=== PATIENT | female | born 1975 | race Caucasian/White ===

== ENCOUNTER 2017-11-18 14:20 | Emergency (ER) | payer BC ==
[2017-11-18] MEDS ORDERED: 0.9 % SODIUM CHLORIDE 1,000 ML BAG IV ONE (14:44)
[2017-11-18] MEDS ORDERED: ONDANSETRON HCL IV 4 MG/2 ML VIAL IV ONE (14:44)
[2017-11-18] MEDS ORDERED: HYDROMORPHONE HCL 2 MG/ML VIAL IVP ONE (14:45)
--- NOTE | 2017-11-18 14:52 | Emergency Department Record ---
History of Present Illness - General Chief Complaint: Abdominal Pain Stated Complaint: RT SIDE ABDOMINAL PAIN/KORY Time Seen by Provider: 11/18/17 14:40 Source: Patient Mode of Arrival: Ambulatory Limitations: No limitations - History of Present Illness Initial Comments: The patient is here due to a 3 day hx of crampy diffuse AP which now seems to be worse over the RUQ. She has had nausea but no vomiting. Additionally she has had 3-4 loose stools a day but with no blood in them. The patient has had a poor appetite and her only abdominal surgery is a MAKAYLA. The patient states when she is having he AP it does intermittently radiate up into her chest. There is no hx of CP with exertion, MATA or dyspnea. MD Complaint: Abdominal pain Onset/Timin -: Days(s) Location: Diffuse, Epigastric, RLQ Radiation: Back Severity: Moderate Severity scale (1-10): 8 Quality: Aching Consistency: Constant Improves With: Nothing - Related Data Patient : No Home Medications Medication Instructions Recorded Confirmed Last Taken Acyclovir 400 mg PO DAILY 11/18/17 11/18/17 1 Day Ago ~11/17/17 Albuterol Sulfate [Proair Hfa] 1 - 2 puff IH .EVERY 4-6 HOURS PRN 11/18/1711/18 1 Day Ago ~11/17/17 Aspirin 81 mg PO DAILY 11/18/17 11/18/17 1 Day Ago ~11/17/17 B-Complex with Vitamin C [Super B 1 each PO DAILY 11/18/17 11/18/17 1 Day Ago Complex-Vitamin C] ~11/17/17 Biotin 10,000 mcg PO QPM 11/18/17 11/18/17 1 Day Ago ~11/17/17 Cholecalciferol (Vitamin D3) 5,000 unit PO DAILY 11/18/17 11/18/17 1 Day Ago [Vitamin D3] ~11/17/17 Cranberry Fruit Extract [Cranberry] 850 mg PO DAILY 11/18/17 11/18/17 1 Day Ago ~11/17/17 Fenofibrate Nanocrystallized 145 mg PO QPM 11/18/17 11/18/17 1 Day Ago [Tricor] ~11/17/17 Fish Oil/Dha/Epa [Fish Oil 1,200 1 each PO DAILY 11/18/17 11/18/17 1 Day Ago mg Fish Oil] ~11/17/17 Fluticasone Propionate [Flonase] 2 spray EACH NARES DAILY PRN 11/18/17 11/18/17 1 Day Ago ~11/17/17 Gabapentin [Neurontin] 300 mg PO QPM 11/18/17 11/18/17 1 Day Ago ~11/17/17 Hydroxychloroquine Sulfate 200 mg PO BID 11/18/17 11/18/17 1 Day Ago [Plaquenil] ~11/17/17 Lactobacillus Acidophilus 1 each PO DAILY 11/18/17 11/18/17 1 Day Ago [Probiotic Acidophilus] ~11/17/17 Levothyroxine Sodium [Synthroid] 50 mcg PO DAILY 11/18/17 11/18/17 1 Day Ago ~11/17/17 Lisdexamfetamine Dimesylate 30 mg PO QAM 11/18/17 11/18/17 1 Day Ago [Vyvanse] ~11/17/17 Lisinopril [Zestril] 5 mg PO DAILY 11/18/17 11/18/17 1 Day Ago ~11/17/17 Metformin HCl [Glucophage] 500 mg PO BID 11/18/17 11/18/17 1 Day Ago ~11/17/17 Multivitamin [Multiple Vitamins] 1 each PO DAILY 11/18/17 11/18/17 1 Day Ago ~11/17/17 Pantoprazole Sodium [Protonix] 40 mg PO DAILY 11/18/17 11/18/17 1 Day Ago ~11/17/17 Sertraline HCl [Zoloft] 25 mg PO QPM 11/18/17 11/18/17 1 Day Ago ~11/17/17 Sitagliptin Phosphate [Januvia] 50 mg PO QAM 11/18/17 11/18/17 1 Day Ago ~11/17/17 Topiramate [Topamax] 50 mg PO QPM 11/18/17 11/18/17 1 Day Ago ~11/17/17 Turmeric Root Extract [Turmeric] 500 mg PO DAILY 11/18/17 11/18/17 1 Day Ago ~11/17/17 Previous Rx's Medication Instructions Recorded Hydrocodone/Acetaminophen [[place] 1 - 2 each PO .EVERY 4-6 HRS PRN 11/18/17 5-325 Tablet] #15 tablet Sucralfate [Carafate] 1 gm PO QID #28 tablet 11/18/17 Allergies Allergy/AdvReac Type Severity Reaction Status Date / Time doxycycline Allergy HIVES Verified 11/18/17 14:38 latex Allergy HIVES Verified 11/18/17 14:38 peanut Allergy DIFFICULTY Verified 11/18/17 14:38 BREATHING Sulfa (Sulfonamide Allergy HIVES Verified 11/18/17 14:38 Antibiotics) Travel Screening - Travel/Exposure Within Last 30 Days Have you traveled within the last 30 days?: No - Travel/Exposure Within Last Year Have you traveled outside the [place] in the last year?: No - Additonal Travel Details Have you been exposed to anyone with a communicable illness?: No - Travel Symptoms Symptom Screening: None Review of Systems Constitutional: Reports: Malaise. Denies: Chills, Fever Eyes: Denies: Eye discharge ENT: Denies: Congestion Respiratory: Denies: Cough, Dyspnea Cardiovascular: Denies: Arrhythmia Past Medical History - SOCIAL HISTORY Smoking Status: Former smoker Alcohol Use: None Drug Use: None - RESPIRATORY Hx Bronchitis: Yes (chronic) Hx COPD: Yes - CARDIOVASCULAR Hx Hypertension: Yes - NEURO Hx Headaches: Yes (migraine) Comment:: 2005 TBI - GI Hx Reflux: Yes - ENDOCRINE Hx Diabetes: Yes Hx Thyroid Disease: Yes Comment:: Auto immune-lupus - MUSCULOSKELETAL Hx Arthritis: Yes - PSYCH Hx Anxiety: Yes Comment:: PTSD - HEMATOLOGY/ONCOLOGY Hx Anemia: No Hx Blood Disorders: No Hx Bruising: No Hx Cancer: No Family Medical History Any Significant Family History?: Yes Family Hx Comment (NOT TO BE USED IN PLACE OF ITEMS BELOW): Lupus, fibromyalgias Hx Cancer: Father Hx Diabetes: Father, Mother Hx Heart Disease: Father Hx HTN: Father Physical Exam - General General Appearance: Alert, Oriented x3, Cooperative, No acute distress - Head Head exam: Atraumatic, Normocephalic, Normal inspection - Eye Eye exam: Normal appearance, PERRL - Neck Neck exam: Normal inspection, Full ROM. negative: Tenderness - Respiratory Respiratory exam: Normal lung sounds bilaterally. negative: Respiratory distress - Cardiovascular Cardiovascular Exam: Regular rate, Normal rhythm, Normal heart sounds - GI/Abdominal GI/Abdominal exam: Soft, Normal bowel sounds, Tenderness (There is significant mild to moderate diffuse AP increased in the RUQ.). negative: Guarding, Organomegaly, Pulsatile mass, Rebound - Extremities Extremities exam: Normal inspection, Full ROM, Normal capillary refill. negative: Tenderness Course Vital Signs 11/18/17 14:25 Temperature 98.2 F Pulse Rate 102 H Respiratory 16 Rate Blood Pressure 165/105 Pulse Ox 98 - Reevaluation(s) Reevaluation #1: The patient is doing a lot better at this time. She denies any new issues and states her pain is much improved. On exam her abdomen is very soft with only minimal RUQ tenderness. I did explain to her that her test results are all normal and that I am concerned about her gallbladder. The patient is to return to the ER at 7:15 am for recheck and an 8am US. 11/18/17 16:39 Medical Decision Making - Data Complexity MDM Data: Labs Ordered and/or Reviewed, X-Ray Ordered and/or Reviewed, EKG Ordered and/or Reviewed - Lab Data Result diagrams: 11/18/17 15:01 11/18/17 15:01 - EKG Data -: EKG Interpreted by Me EKG: No Acute Changes, Normal EKG - Radiology Data Radiology results: Report reviewed (CT: No acute intra-abdominal pathology.) Disposition Disposition: Discharge Clinical Impression: Abdominal pain Qualifiers: Abdominal location: right upper quadrant Qualified Code(s): R10.11 - Right upper quadrant pain Disposition: Home, Self-Care Condition: (2) Stable Instructions: Abdominal Pain (ED) Additional Instructions: Please start the Carafate as directed and use the [place] if needed. Please return to the ER at 7:15 am tomorrow for recheck and for the 8am US. Please return to the ER sooner for any increased pain, nausea, vomiting, or fever. Prescriptions: Hydrocodone/Acetaminophen [[place] 5-325 Tablet] 1 - 2 each PO .EVERY 4-6 HRS PRN #15 tablet PRN Reason: Pain Sucralfate [Carafate] 1 gm PO QID #28 tablet Forms: Patient Portal Access Time of Disposition: 16:31 Quality - Quality Measures Quality Measures: N/A - Blood Pressure Screening View Details: Yes Does Patient Have Any of the Following: Active Dx of HTN Blood Pressure Classification: Hypertensive Reading Systolic Measurement: 165 Diastolic Measurement: 105 Screening for High Blood Pressure: Patient Exclusion, Hx of HTN [G9744]
[2017-11-18 15:11] LABS: BASO % 0.8 % (0-6); EOS % 3.9 % (0-6); GRAN % 58.2 % (47-80); HEMATOCRIT 40.8 % (35.0-47.0); HEMOGLOBIN 13.7 gm/dl (11.6-16.0); LYMPH % 27.7 % (16-45); MEAN CELL VOLUME 87.7 fl (81-97); MEAN CORPUSCULAR HEMOGLOBIN 29.5 pg (27-33); MEAN CORPUSCULAR HGB CONC 33.6 g/dl (32-36); MEAN PLATELET VOLUME 10.3 fl (7.4-10.4); MONO % 9.4 % (0-9); PLATELET COUNT 320 K/uL (130-400); RED BLOOD COUNT 4.65 M/uL (3.80-5.40); RED CELL DISTRIBUTION WIDTH 13.4 % (11.5-14.5); URINE APPEARANCE SL CLOUDY; URINE BILIRUBIN NEGATIVE (NEGATIVE); URINE BLOOD NEGATIVE (NEGATIVE); URINE COLOR YELLOW; URINE GLUCOSE (UA) NEGATIVE (NEGATIVE); URINE KETONE NEGATIVE (NEGATIVE); URINE LEUKOCYTE ESTERASE NEGATIVE (NEGATIVE); URINE NITRITE NEGATIVE (NEGATIVE); URINE PROTEIN NEGATIVE (NEGATIVE); URINE UROBILINOGEN 0.2 E.U./dL (0.20 - 1.00); WHITE BLOOD COUNT W/O DIFF 7.7 K/uL (4.2-12.2)
[2017-11-18 15:24] LABS: BLOOD UREA NITROGEN 13 mg/dL (6-20); CREATININE 0.8 mg/dL (0.5-0.9); EST GLOMERULAR FILTRATION RATE > 60 mL/min; TOTAL PROTEIN 7.2 g/dL (6.6-8.7)
[2017-11-18 15:26] LABS: GLUCOSE,RANDOM 149 mg/dL (74-109)
[2017-11-18 15:29] LABS: ALBUMIN 4.6 g/dL (4.0-5.0); ALKALINE PHOSPHATASE 57 U/L (35-104); ALT/SGPT 23 U/L (<33); AST/SGOT 24 U/L (10.0-35.0); LIPASE 47 U/L (13-60)
[2017-11-18 15:30] LABS: BILIRUBIN,DIRECT < 0.2 mg/dL (0-0.3)
[2017-11-18] MEDS ORDERED: SUCRALFATE 1 G/10 ML UD PO ONE (16:04)
[2017-11-18 16:22] LABS: CREATINE PHOSPHOKINASE 129 U/L (26-192)
[2017-11-18 16:23] LABS: CKMB 2.3 ng/mL (<3.77)
--- NOTE | 2017-11-19 07:36 | CT SCAN REPORT ---
EXAM: CT OF THE ABDOMEN AND PELVIS HISTORY: RIGHT UPPER QUADRANT PAIN AND CHEST TIGHTNESS. TECHNIQUE: CT of the abdomen and pelvis was performed without intravenous or oral contrast. Comparison: None. FINDINGS: The lung bases are unremarkable. There is a 2 mm nonobstructing calculus in the lower right kidney. No other renal or ureteral calculi. No hydronephrosis. There is a 9 mm low density lesion in the posterior mid right kidney likely a cyst, but not optimally assessed without contrast and due to its small size. No contour deforming renal mass identified. There is diffuse fatty infiltration of the liver. There is no hepatic mass. The liver is, however, not optimally assessed without contrast. The spleen is unremarkable. No pancreatic mass or inflammatory change. The bile ducts are not dilated. There are no calcified gallstones. No adrenal lesion. There is no aortic aneurysm. No periaortic mass or adenopathy. There are no dilated bowel loops. No CT evidence for appendicitis. The uterus is surgically absent. No pelvic mass, abscess or adenopathy. No free air or free fluid. Arthritic changes are present in the lower lumbar spine. IMPRESSION: 1. NO ACUTE ABDOMINAL OR PELVIC PROCESS IDENTIFIED. 2. THERE IS A 2 MM NONOBSTRUCTING CALCULUS IN THE LOWER POLE OF THE RIGHT KIDNEY. 3. PROBABLE 9 MM CYST RIGHT KIDNEY. 4. DIFFUSE FATTY INFILTRATION OF THE LIVER. 5. PRIOR HYSTERECTOMY. 6. ARTHRITIC CHANGES IN THE LOWER LUMBAR SPINE. JOB NUMBER: [id number] MTDD
== END 2017-11-18 16:49 | disposition home or self-care (01) ==
LOC: ER 14:20
DX: R10.11 Right upper quadrant pain (principal); R11.0 Nausea; R07.89 Other chest pain; I10 Essential (primary) hypertension; E11.9 Type 2 diabetes mellitus without complications; Z87.891 Personal history of nicotine dependence; Z79.84 Long term (current) use of oral hypoglycemic drugs
CPT/HCPCS: 99284 ×2; 96374; 96375; 82550; 83690; 85025; 80076; 82553; 80048; 81003; 84484; 74176; 93005; 93010; J2405; J1170; J7030

== ENCOUNTER 2017-11-19 07:07 | Inpatient (IN) | payer BC ==
--- NOTE | 2017-11-19 07:19 | Emergency Department Record ---
History of Present Illness - General Chief Complaint: Recheck - Other Stated Complaint: ULTRASOUND Time Seen by Provider: 11/19/17 07:12 Source: Patient Mode of arrival: Ambulatory Limitations: No limitations - History of Present Illness Initial Comments: The patient is here for recheck due to RUQ Ap for 3 days. She was in the ER yesterday afternoon and had a neg workup including an abdominal CT. Last night the patient states her pain did worsen minimally with mild nausea and loose stool. She denies any vomiting or fever. She is here this AM for an abdominal US. Complaint: Other Onset/Timin -: Days(s) Symptoms Since Prior Visit: No new symptoms Associated Symptoms: Nausea - Related Data Previous Rx's Medication Instructions Recorded Hydrocodone/Acetaminophen [[place] 1 - 2 each PO .EVERY 4-6 HRS PRN 11/18/17 5-325 Tablet] #15 tablet Sucralfate [Carafate] 1 gm PO QID #28 tablet 11/18/17 Ondansetron [Zofran Odt] 4 mg SL .Q4-6H PRN #12 tab.rapdis 11/19/17 Allergies Allergy/AdvReac Type Severity Reaction Status Date / Time doxycycline Allergy HIVES Verified 11/18/17 14:38 latex Allergy HIVES Verified 11/18/17 14:38 peanut Allergy DIFFICULTY Verified 11/18/17 14:38 BREATHING Sulfa (Sulfonamide Allergy HIVES Verified 11/18/17 14:38 Antibiotics) Review of Systems Constitutional: Denies: Chills, Fever Eyes: Denies: Eye discharge ENT: Denies: Congestion Respiratory: Denies: Cough Cardiovascular: Denies: Arrhythmia, Chest pain Endocrine: Reports: Fatigue Gastrointestinal: Reports: Abdominal pain, Diarrhea, Nausea. Denies: Vomiting Genitourinary: Denies: Dysuria Musculoskeletal: Denies: Arthralgia, Back pain Past Medical History - SOCIAL HISTORY Smoking Status: Former smoker Drug Use: None - RESPIRATORY Hx Bronchitis: Yes (chronic) Hx COPD: Yes - CARDIOVASCULAR Hx Hypertension: Yes - NEURO Hx Headaches: Yes (migraine) Comment:: 2006 TBI - GI Hx Reflux: Yes - ENDOCRINE Hx Diabetes: Yes Hx Thyroid Disease: Yes Comment:: Auto immune-lupus - MUSCULOSKELETAL Hx Arthritis: Yes - PSYCH Hx Anxiety: Yes Comment:: PTSD - HEMATOLOGY/ONCOLOGY Hx Anemia: No Hx Blood Disorders: No Hx Bruising: No Hx Cancer: No Family Medical History Family Hx Comment (NOT TO BE USED IN PLACE OF ITEMS BELOW): Lupus, fibromyalgias Hx Cancer: Father Hx Diabetes: Father, Mother Hx Heart Disease: Father Hx HTN: Father Physical Exam - General General Appearance: Alert, Oriented x3, Cooperative, No acute distress - Head Head exam: Atraumatic, Normocephalic - Eye Eye exam: Normal appearance, PERRL - Neck Neck exam: Normal inspection, Full ROM. negative: Tenderness - Respiratory Respiratory exam: Normal lung sounds bilaterally. negative: Respiratory distress - Cardiovascular Cardiovascular Exam: Regular rate, Normal rhythm, Normal heart sounds - GI/Abdominal GI/Abdominal exam: Soft, Tenderness (There is significant RUQ tenderness.). negative: Distended, Rebound, Rigid - Extremities Extremities exam: Normal inspection, Full ROM, Normal capillary refill. negative: Tenderness Course - Reevaluation(s) Reevaluation #1: The patient is doing well at this time. Her pain is improved but still present and nausea has resolved. On exam the abdomen is soft with minimal epigastric and RUQ tenderness. Due to the persistent tenderness and now elevated Lipase I did recommend hospital admission and she did agree to that. I also did discuss the case with Dr. Thomas and he agreed to the admission. I did also discuss the case with Dr. Wallis and he can consult on the patient today. The patient is also to F/U with Dr. Cloud in 3 days in the [facility]. 11/19/17 08:57 11/19/17 09:26 11/19/17 09:30 Medical Decision Making - Data Complexity MDM Data: Labs Ordered and/or Reviewed, X-Ray Ordered and/or Reviewed - Lab Data Result diagrams: 11/19/17 07:12 11/19/17 07:25 - Radiology Data Radiology results: Report reviewed (US: Neg except for fatty liver.) Disposition Disposition: Admit Clinical Impression: Pancreatitis Qualifiers: Chronicity: acute Pancreatitis type: unspecified pancreatitis type Acute pancreatitis complication: unspecified Qualified Code(s): K85.90 - Acute pancreatitis without necrosis or infection, unspecified Disposition: Still a Patient at [facility] Decision to Admit: Admit from ER Decision to Admit Date: 11/19/17 Decision to Admit Time: :28 Accepting Physician: Martha Time Discussed w/Accepting Physician: :28 Condition: (2) Stable Additional Instructions: Please eat a very bland diet and take the Carafate and Zofran as directed. Please see Dr. Cloud and Dr. Wallis as planned. Return to the ER for any worsening symptoms of pain, or for any fever, or vomiting. Prescriptions: Ondansetron [Zofran Odt] 4 mg SL .Q4-6H PRN #12 tab.rapdis PRN Reason: Nausea Referrals: [facility] Specialty Clinics [Provider Group] Norris Wallis [DOCTOR OF OSTEOPATH] - SERGEY CLOUD [DOCTOR OF OSTEOPATH] - Forms: Patient Portal Access Time of Disposition: 08:59 Quality - Quality Measures Quality Measures: N/A - Blood Pressure Screening View Details: Yes Does Patient Have Any of the Following: No Blood Pressure Classification: Hypertensive Reading Systolic Measurement: 152 Diastolic Measurement: 94 Screening for High Blood Pressure: < First Hypertensive BP, F/U Documented > [ G8950] First Hypertensive Follow-up Interventions: Referral to alternative/primary care provider.
[2017-11-19 07:31] LABS: BASO % 0.8 % (0-6); EOS % 5.4 % (0-6); GRAN % 53.7 % (47-80); HEMATOCRIT 40.8 % (35.0-47.0); HEMOGLOBIN 13.4 gm/dl (11.6-16.0); LYMPH % 31.7 % (16-45); MEAN CELL VOLUME 89.1 fl (81-97); MEAN CORPUSCULAR HEMOGLOBIN 29.3 pg (27-33); MEAN CORPUSCULAR HGB CONC 32.8 g/dl (32-36); MONO % 8.4 % (0-9); PLATELET COUNT 294 K/uL (130-400); RED BLOOD COUNT 4.58 M/uL (3.80-5.40); RED CELL DISTRIBUTION WIDTH 13.4 % (11.5-14.5); WHITE BLOOD COUNT W/O DIFF 6.1 K/uL (4.2-12.2)
[2017-11-19] MEDS ORDERED: ONDANSETRON HCL IV 4 MG/2 ML VIAL IVP ONE (08:02)
[2017-11-19 08:24] LABS: BLOOD UREA NITROGEN 12 mg/dL (6-20)
[2017-11-19 08:25] LABS: BILIRUBIN,TOTAL < 0.20 mg/dL (0.2-1.0); CREATININE 0.8 mg/dL (0.5-0.9); EST GLOMERULAR FILTRATION RATE > 60 mL/min; TOTAL PROTEIN 6.6 g/dL (6.6-8.7)
[2017-11-19 08:27] LABS: GLUCOSE,RANDOM 216 mg/dL (74-109)
[2017-11-19 08:30] LABS: ALB/GLOB RATIO 1.5 (1.1-1.8); ALKALINE PHOSPHATASE 49 U/L (35-104); ALT/SGPT 20 U/L (<33); AST/SGOT 21 U/L (10.0-35.0)
--- NOTE | 2017-11-19 09:07 | ULTRASOUND REPORT ---
EXAM: ULTRASOUND OF THE ABDOMEN HISTORY: RIGHT UPPER QUADRANT PAIN. TECHNIQUE: Sonographic evaluation of the abdomen was performed using simpson scale imaging. FINDINGS: There is fatty infiltration of the liver. No gallstones or ductal dilatation. The common bile duct measures 0.18 cm. The pancreas and spleen appear normal. The kidneys are normal in size. No hydronephrosis or nephrolithiasis. The abdominal aorta and inferior vena cava are patent. IMPRESSION: 1. FATTY INFILTRATION OF THE LIVER. 2. NO GALLSTONES OR DUCTAL DILATATION. JOB NUMBER: [id number] [facility]
[2017-11-19] MEDS ORDERED: HYDROMORPHONE HCL 2 MG/ML VIAL IVP ONE ×2 (09:17→11:22)
[2017-11-19] MEDS ORDERED: 0.9 % SODIUM CHLORIDE 1,000 ML BAG IV ONE (09:18)
[2017-11-19] MEDS ORDERED: ALBUTEROL HFA 8 GM INHALER INH PRN (10:46)
[2017-11-19] MEDS ORDERED: LISDEXAMFETAMINE DIMESYLATE 30 MG PO SCH (10:46)
[2017-11-19] MEDS ORDERED: SITAGLIPTIN PHOSPHATE 50 MG PO SCH (10:46)
[2017-11-19] MEDS ORDERED: HYDROMORPHONE HCL 2 MG/ML VIAL IV PRN (10:46)
[2017-11-19] MEDS: 0.9 % SODIUM CHLORIDE 1000ML 1,000 ML IV PRN ×2 (11:04→17:57)
[2017-11-19] MEDS: ONDANSETRON HCL IV 4 MG/2 ML VIAL IVP PRN ×3 (11:05→22:34)
[2017-11-19] MEDS: HYDROXYCHLOROQUINE SULFATE 200 MG TABLET PO SCH ×2 (11:41→21:14)
[2017-11-19] MEDS: PANTOPRAZOLE SODIUM IV 40 MG VIAL IV SCH (11:41)
[2017-11-19] MEDS: METOCLOPRAMIDE HCL 10 MG/2 ML VIAL IVP PRN ×2 (15:03→20:11)
[2017-11-19] MEDS: HYDROMORPHONE HCL 2 MG/ML VIAL IV PRN ×3 (15:04→20:12)
[2017-11-19] MEDS: NOVOLOG FLEXPEN (INSULIN ASPART) 100 UNITS/ML SQ SCH (17:26)
[2017-11-19] MEDS: LEVOTHYROXINE SODIUM 50 MCG TABLET PO SCH ×2 (21:14→21:18)
[2017-11-19] MEDS: METFORMIN 500 MG TABLET PO SCH (21:15)
[2017-11-19] MEDS ORDERED: TOPIRAMATE 25MG TABLET PO SCH (22:00)
[2017-11-19] MEDS ORDERED: GABAPENTIN 300 MG CAPSULE PO SCH (22:00)
[2017-11-19] MEDS ORDERED: SERTRALINE HCL 50 MG TABLET PO SCH (22:00)
[2017-11-20] MEDS: 0.9 % SODIUM CHLORIDE 1000ML 1,000 ML IV PRN ×3 (00:25→17:25)
[2017-11-20 06:56] LABS: BASO % 0.5 % (0-6); EOS % 3.3 % (0-6); GRAN % 58.6 % (47-80); HEMATOCRIT 37.6 % (35.0-47.0); HEMOGLOBIN 12.4 gm/dl (11.6-16.0); LYMPH % 31.3 % (16-45); MEAN CELL VOLUME 89.3 fl (81-97); MEAN CORPUSCULAR HEMOGLOBIN 29.5 pg (27-33); MEAN PLATELET VOLUME 10.4 fl (7.4-10.4); MONO % 6.3 % (0-9); PLATELET COUNT 272 K/uL (130-400); RED BLOOD COUNT 4.21 M/uL (3.80-5.40); RED CELL DISTRIBUTION WIDTH 13.3 % (11.5-14.5); WHITE BLOOD COUNT W/O DIFF 6.6 K/uL (4.2-12.2)
[2017-11-20] MEDS ORDERED: LEVOTHYROXINE SODIUM 50 MCG TABLET PO SCH (07:00)
[2017-11-20 07:06] LABS: ALB/GLOB RATIO 1.7 (1.1-1.8); ALBUMIN 3.8 g/dL (4.0-5.0); ALKALINE PHOSPHATASE 39 U/L (35-104); ALT/SGPT 19 U/L (<33); AST/SGOT 20 U/L (10.0-35.0); BLOOD UREA NITROGEN 8 mg/dL (6-20); CREATININE 0.8 mg/dL (0.5-0.9); EST GLOMERULAR FILTRATION RATE > 60 mL/min; GLUCOSE,RANDOM 139 mg/dL (74-109)
--- NOTE | 2017-11-20 07:21 | History and Physical Report ---
DATE: 11/19/2017 at 1 p.m. CHIEF COMPLAINT: Abdominal pain, right upper quadrant. HISTORY OF PRESENT ILLNESS: This 42-year-old female presents to the emergency department with 3 days of abdominal pain. She is seen in the emergency department last night and today. She came back in for reevaluation of her abdominal pain and ultrasound. She was seen last night with a CT scan of the abdomen and pelvis which were negative for any acute abnormalities. Labs were negative. The ultrasound today was negative for stones; however, lipase went up to 350. She also has elevated cholesterol at 252, LDL cholesterol is 166, triglycerides 410. Her white count today is 6100, hemoglobin 13.4, potassium 3.9, BUN 12, creatinine 0.8. She was admitted for acute pancreatitis and surgical consultation with Dr. Wallis and a SRINATH reza. PAST MEDICAL HISTORY: Type 2 diabetes mellitus, lupus, hypothyroidism, anxiety and depression. She uses acyclovir to prevent herpes breakout. GERD, attention deficit disorder. She also has COPD, hypertension, migraines, hypothyroidism, lupus, arthritis, posttraumatic stress disorder. PAST SURGICAL HISTORY: Right knee surgery in 1993, left knee surgery in 1994, ovarian cyst 1996, hysterectomy in 2007, tonsils and adenoids in 1981. MEDICATIONS: 1. TriCor 145 mg q.h.s. 2. Topamax 50 mg at h.s. 3. Sertraline 25 mg at h.s. 4. Levothyroxine 50 mcg q.h.s. 5. Gabapentin 300 mg at h.s. 6. Tumeric 500 mg daily. 7. Carafate 1 g q.i.d. 8. Januvia 50 mg q.a.m. 9. Protonix 40 mg q.a.m. 10. Multivitamin 1 a day. 11. Metformin 500 mg b.i.d. 12. Lisinopril 5 mg daily. 13. Vyvanse 30 mg q.a.m. 14. Lactobacillus 1 daily. 15. Plaquenil 200 mg b.i.d. 16. [place] 5 mg 1-2 every 4-6 hours p.r.n. 17. Flonase nasal spray 2 sprays each nostril daily. 18. Fish oil 1 a day. 19. Cranberry extract 850 daily. 20. Vitamin D3, 5000 units daily. 21. Biotin 10,000 mcg q.p.m. 22. B complex 1 a day. 23. Aspirin 81 mg daily. 24. Albuterol 2 puffs q.4 h. p.r.n. 25. Acyclovir 400 mg daily to prevent herpes breakout and Zofran 4 mg sublingual p.r.n. ALLERGIES: DOXYCYCLINE, LATEX, PEANUTS, SULFA. FAMILY/PSYCHOSOCIAL HISTORY: History of lupus and fibromyalgia. Father has cancer. Father and mother have diabetes. Heart disease with the father and hypertension with the father. She is a former smoker. She quit in 2012. No alcohol or drug use. REVIEW OF SYSTEMS: Gastrointestinal: See Chief Complaint. She has abdominal pain right upper quadrant and vomiting and nausea. Genitourinary: No dysuria, hematuria, frequency, or burning on urination. Musculoskeletal: She has arthritis. Neurological: No CVA, paralysis, or paresthesias. Endocrine: She has both diabetes mellitus type 2 and hypothyroidism. Integument: No rash, ulcerative change in moles, or yellow skin. PHYSICAL EXAMINATION: VITAL SIGNS: Height 5 feet 2 inches. Weight 192 pounds. Temperature 98.4, blood pressure 142/92, respiratory rate 16, pulse ox 98% on room air, pulse 98. HEENT: Pupils are equal, round, and reactive to light and accommodation. Extraocular muscles are intact. Throat is clear. Nose is clear. Tympanic membranes are simpson. NECK: Supple. No jugular venous distention. No hepatojugular reflux. No carotid bruits. Thyroid is smooth. CARDIOVASCULAR: Regular rate and rhythm without murmurs, clicks, rubs, or gallops. RESPIRATORY: Clear to auscultation. Breath sounds equal bilaterally. ABDOMEN: Soft but there is pain in the right upper quadrant. No rebound or rigidity. EXTREMITIES: No pitting edema. No cyanosis, no clubbing. Full range of motion. Peripheral pulses are good. BREASTS: Exam deferred. GYNECOLOGICAL: Exam deferred. RECTAL: Exam deferred. NEUROLOGIC: Cranial nerves II-XII intact. No gross defects. Sensation normal, strength normal. Deep tendon reflexes equal bilaterally with Babinski negative. MENTAL STATUS: Alert and oriented x3. IMPRESSION: 1. Abdominal pain, right upper quadrant. 2. Acute pancreatitis. 3. History of diabetes mellitus type 2. 4. History of hypothyroidism. 5. History of osteoarthritis. 6. History of gastroesophageal reflux disease. 7. History of sleep apnea. 8. History of attention deficit hyperactivity disorder. 9. History of chronic obstructive pulmonary disease. PLAN: SRINATH reza. Dr. Wallis consult. Pain control. IV fluids. INPATIENT CERTIFICATION: Admit to inpatient care. Based on my medical assessment, after consideration of patient's risk factors, age, comorbidities, and patient's presenting symptoms and acuity, I expect that this patient will remain in the hospital greater than or equal to 2 midnights and that the services needed warrant inpatient care because of abdominal pain, further evaluation by Surgery. Estimated length of stay is 2 days. The patient may reasonably be expected to be discharged or transferred to a hospital within 96 hours after admission to [facility]. I certify that my determination is in accordance with my understanding of Medicare requirements for reasonable and necessary inpatient services. SHIREEN
--- NOTE | 2017-11-20 07:21 | Medical Records Consult ---
DATE OF CONSULTATION: 11/19/2017 REASON FOR CONSULTATION: Abdominal pain. HISTORY OF PRESENT ILLNESS: The patient is a 42-year-old female who has had a 4-day history of epigastric and right upper quadrant pain. She states that this is mainly constant. It gets worse with movement as well as eating. She really has not been able to eat much but has tried mashed potatoes and even water which seem to flare this up. She states that this does go up into her mid chest a bit and radiates around to her right flank and back. She is nauseated with this and did have a bit of diarrhea. She was seen over the weekend to [facility] ER where CT scan and laboratory values were done. These were essentially normal. She came back today for repeat lab draws as well as an ultrasound. She stated she has not gotten any better. She thinks she might be a bit worse. She does have history of GERD but thinks this feels different. She is on PPI and has never been scoped. She does have a history of hypertriglyceridemia for which she takes TriCor but these have not been checked in about 6 months. Repeat labs today show normal liver function tests although her lipase was 350. The rest of her labs were normal. Abdominal ultrasound showed no evidence of cholelithiasis or cholecystitis. All her ductal caliber was normal. PAST MEDICAL HISTORY: GERD, multiple autoimmune issues. PAST SURGICAL HISTORY: Denies. CURRENT MEDICATIONS: 1. [place]. 2. Carafate. 3. Zofran. ALLERGIES: DOXYCYCLINE, LATEX, PEANUTS, SULFA. SOCIAL HISTORY: She denies any tobacco or alcohol usage although she did smoke in the past. PHYSICAL EXAMINATION: VITAL SIGNS: Stable. She is afebrile. HEART: Regular rate and rhythm. LUNGS: Clear. ABDOMEN: Soft, obese. There is some epigastric and right subcostal tenderness. There is no guarding or rebound or peritoneal signs noted. DIAGNOSTIC DATA: I did review her labs and imaging. IMPRESSION: Pancreatitis, unknown clear etiology. PLAN: She does not drink. She has no gallstones. I would favor triglycerides as a potential source. We will obtain a lipid panel and obtain a HIDA scan with [facility] although I doubt this is biliary in nature. She may benefit from upper endoscopy at some point as well. Thank you for this referral. CC: DO SHIREEN Mathew
[2017-11-20 07:55] LABS: TOTAL PROTEIN 5.9 g/dL (6.6-8.7)
[2017-11-20 07:59] LABS: ALT/SGPT 19 U/L (<33)
[2017-11-20 08:00] LABS: ALBUMIN 3.7 g/dL (4.0-5.0); ALKALINE PHOSPHATASE 38 U/L (35-104); AST/SGOT 20 U/L (10.0-35.0); LIPASE 38 U/L (13-60)
[2017-11-20 08:02] LABS: BILIRUBIN,DIRECT < 0.2 mg/dL (0-0.3)
[2017-11-20] MEDS ORDERED: LISINOPRIL 5 MG TABLET PO SCH (10:00)
[2017-11-20] MEDS ORDERED: ACYCLOVIR 200 MG CAPSULE PO SCH (10:00)
[2017-11-20] MEDS: NOVOLOG FLEXPEN (INSULIN ASPART) 100 UNITS/ML SQ SCH ×3 (11:11→17:25)
[2017-11-20] MEDS: HYDROXYCHLOROQUINE SULFATE 200 MG TABLET PO SCH (11:20)
[2017-11-20] MEDS: METFORMIN 500 MG TABLET PO SCH (11:20)
[2017-11-20] MEDS: PANTOPRAZOLE SODIUM IV 40 MG VIAL IV SCH (11:23)
[2017-11-20] MEDS: METOCLOPRAMIDE HCL 10 MG/2 ML VIAL IVP PRN (11:40)
--- NOTE | 2017-11-20 14:49 | NUCLEAR MEDICINE REPORT ---
EXAM: NUCLEAR MEDICINE HIDA SCAN HISTORY: PAIN. TECHNIQUE: Following the IV administration of 5.9 millicuries of Technetium 99M mebrofenin, hepatobiliary imaging was performed. 1.7 micrograms of Kinevac was administered, and gallbladder ejection fraction obtained. Comparison: Ultrasound 11/19/17. FINDINGS: Normal background activity in the hepatic parenchyma. Visualization of the CBD and small bowel after 15-20 minutes. Visualization of the gallbladder after 15-20 minutes. Findings are consistent with cystic and common bile duct patency. The gallbladder ejection fraction is 9%. Normal is 35% and above. IMPRESSION: CYSTIC AND COMMON BILE DUCT PATENCY. LOW GALLBLADDER EJECTION FRACTURE, AT 9%. JOB NUMBER: [id number] MTDD
--- NOTE | 2017-11-20 18:53 | Discharge Note ---
VTE H&P Assessment - Risk for VTE Risk for VTE: No Risk Level: Very Low Risk Assessment Date: 11/20/17 Risk Assessment Time: 09:00 VTE Orders Placed or Will Be Placed: No VTE Reason for No Prophylaxis: Not Indicated Discharge Medications - Discharge Medications Prescriptions: Hydrocodone/Acetaminophen [[place] 5-325 Tablet] 1 each PO Q4HR PRN #30 tablet PRN Reason: Analgesia Ondansetron HCl [Zofran] 4 mg PO Q6HR #14 tablet Ondansetron [Zofran Odt] 4 mg SL .Q4-6H PRN #12 tab.rapdis PRN Reason: Nausea Home Medications: Ambulatory Orders Acyclovir 400 mg PO DAILY 11/18/17 [Last Taken 1 Day Ago ~11/17/17] Albuterol Sulfate [Proair Hfa] 1 - 2 puff IH .EVERY 4-6 HOURS PRN 11/18/17 [ Last Taken 1 Day Ago ~11/17/17] Aspirin 81 mg PO DAILY 11/18/17 [Last Taken 1 Day Ago ~11/17/17] B-Complex with Vitamin C [Super B Complex-Vitamin C] 1 each PO DAILY 11/18/17 [ Last Taken 1 Day Ago ~11/17/17] Biotin 10,000 mcg PO QPM 11/18/17 [Last Taken 1 Day Ago ~11/17/17] Cholecalciferol (Vitamin D3) [Vitamin D3] 5,000 unit PO DAILY 11/18/17 [Last Taken 1 Day Ago ~11/17/17] Cranberry Fruit Extract [Cranberry] 850 mg PO DAILY 11/18/17 [Last Taken 1 Day Ago ~11/17/17] Fenofibrate Nanocrystallized [Tricor] 145 mg PO QHS 11/18/17 [Last Taken 1 Day Ago ~11/17/17] Fish Oil/Dha/Epa [Fish Oil 1,200 mg Fish Oil] 1 each PO DAILY 11/18/17 [Last Taken 1 Day Ago ~11/17/17] Fluticasone Propionate [Flonase] 2 spray EACH NARES DAILY PRN 11/18/17 [Last Taken 1 Day Ago ~11/17/17] Gabapentin [Neurontin] 300 mg PO QHS 11/18/17 [Last Taken 1 Day Ago ~11/17/17] Hydrocodone/Acetaminophen [[place] 5mg/325mg] 1 - 2 each PO .EVERY 4-6 HRS PRN # 15 tablet 11/18/17 [Last Taken Unknown] Hydroxychloroquine Sulfate [Plaquenil] 200 mg PO BID 11/18/17 [Last Taken 1 Day Ago ~11/17/17] Lactobacillus Acidophilus [Probiotic Acidophilus] 1 each PO DAILY 11/18/17 [ Last Taken 1 Day Ago ~11/17/17] Levothyroxine Sodium [Synthroid] 50 mcg PO QHS 11/18/17 [Last Taken 1 Day Ago ~ 11/17/17] Lisdexamfetamine Dimesylate [Vyvanse] 30 mg PO QAM 11/18/17 [Last Taken 1 Day Ago ~11/17/17] Lisinopril [Zestril] 5 mg PO DAILY 11/18/17 [Last Taken 1 Day Ago ~11/17/17] Metformin HCl [Glucophage] 500 mg PO BID 11/18/17 [Last Taken 1 Day Ago ~] Multivitamin [Multiple Vitamins] 1 each PO DAILY 11/18/17 [Last Taken 1 Day Ago ~11/17/17] Pantoprazole Sodium [Protonix] 40 mg PO DAILY 11/18/17 [Last Taken 1 Day Ago ~] Sertraline HCl [Zoloft] 25 mg PO QHS 11/18/17 [Last Taken 1 Day Ago ~11/17/17] Sitagliptin Phosphate [Januvia] 50 mg PO QAM 11/18/17 [Last Taken 1 Day Ago ~] Sucralfate [Carafate] 1 gm PO QID #28 tablet 11/18/17 [Last Taken Unknown] Topiramate [Topamax] 50 mg PO QHS 11/18/17 [Last Taken 1 Day Ago ~11/17/17] Turmeric Root Extract [Turmeric] 500 mg PO DAILY 11/18/17 [Last Taken 1 Day Ago ~11/17/17] Ondansetron [Zofran Odt] 4 mg SL .Q4-6H PRN #12 tab.rapdis 11/19/17 [Last Taken Unknown] Hydrocodone/Acetaminophen [[place] 5-325 Tablet] 1 each PO Q4HR PRN #30 tablet [Last Taken Unknown] Ondansetron HCl [Zofran] 4 mg PO Q6HR #14 tablet 11/20/17 [Last Taken Unknown] Discharge Note - Date Date of Discharge Note: 11/20/17 Disposition: Home, Self-Care Condition: (2) Stable Additional Instructions: Please eat a very bland diet and use norco for pain. zofran for nausea follow up with Dr Wallis on sunday for outpatient gall baladder removal Prescriptions: Ondansetron [Zofran Odt] 4 mg SL .Q4-6H PRN #12 tab.rapdis PRN Reason: Nausea Referrals: [facility] [Provider Group] Norris Wallis [DOCTOR OF OSTEOPATH] - Forms: Patient Portal Access Diet at Discharge: Low Fat, Low Cholesterol
--- NOTE | 2017-11-21 12:30 | Discharge Summary ---
DATE: 11/20/2017 DISCHARGE DIAGNOSES: 1. Biliary colic. 2. Abdominal pain, right upper quadrant. 3. Low HIDA scan. 4. Mild pancreatitis. 5. History of diabetes mellitus type 2. 6. History of hypothyroidism. 7. History of osteoarthritis. 8. History of gastroesophageal reflux disease. 9. History of sleep apnea. 10. History of chronic obstructive pulmonary disease. ATTENDING PHYSICIAN: Kai Thomas DO REASON FOR HOSPITALIZATION: Abdominal pain, right upper quadrant. This 42-year-old female presented to the emergency department with 3 days of abdominal pain. She was seen in the emergency department last night and was admitted for abdominal pain. She was actually seen twice in the ER. First CT of the abdomen was negative. The abdominal ultrasound was negative but the lipase went up to 350. She was admitted for pain control and IV fluids and a HIDA scan. Dr. Wallis consulted on her and saw her on Sunday and recommended the HIDA scan. SIGNIFICANT FINDINGS: The HIDA scan showed a 9% ejection fraction. The cystic and common bile ducts were patent. WBC 6600, hemoglobin 12.4, BUN 8, creatinine 0.8. The lipase did go up to 350, came down to 38 on the day of discharge. The hepatic function testing showing the bilirubin was normal. Liver enzymes are normal. Her triglycerides are slightly elevated at 410, cholesterol 252, LDL 166. THERAPY PROVIDED: The patient was given IV pain control, IV fluids, clear liquids. HOSPITAL COURSE: She is feeling better but still has some right upper quadrant abdominal pain but tolerable. CONDITION ON DISCHARGE: Much improved. DISCHARGE INSTRUCTIONS: Follow up with Dr. Wallis on Sunday for outpatient cholecystectomy at [facility]. Follow up with the ER if she gets worse for further evaluation. Also follow up with her family doctor, Dr. Gloria Huitron, if the pain gets significantly worse and then things can be moved up. Initially we are going to let this settle down and cool off a little bit before surgery, is what Dr. Wallis recommended. Continue her home medications. Use [place] 5 mg q.4 h. p.r.n. pain or Zofran 4 mg q.6 h. p.r.n. nausea. Her normal medications are Zocor 145 q.h.s., Topamax 50 mg at h.s., sertraline 25 mg at h.s., levothyroxine 50 mcg at h.s., gabapentin 300 mg at h.s., tumeric 500 mg daily, Carafate 1 g q.i.d., Januvia 50 mg q.a.m., Protonix 40 mg a.m., multivitamins one a day, metformin 500 mg b.i.d., lisinopril 5 mg daily, Vyvanse 30 mg daily, lactobacillus 1 daily, Plaquenil 200 mg b.i.d., Flonase 2 sprays each nostril daily, fish oil 1 a day, cranberry extract once a day, vitamin D3 5000 units daily, biotin 10,000 mcg daily, B complex 1 daily, aspirin 81 mg a day, albuterol 2 puffs q.4 h. p.r.n. CC: DO SHIREEN Verduzco
== END 2017-11-20 20:00 | disposition home or self-care (01) | DRG 440 ==
LOC: ER 07:07 → OBSVTOIN 10:07 → MEDSURG 10:07
PROVIDERS: ADMIT Emergency Medicine; ATTEND Emergency Medicine
DX: K85.90 Acute pancreatitis without necrosis or infection, unspecified (principal); J44.9 Chronic obstructive pulmonary disease, unspecified; I10 Essential (primary) hypertension; K21.9 Gastro-esophageal reflux disease without esophagitis; E11.9 Type 2 diabetes mellitus without complications; M32.9 Systemic lupus erythematosus, unspecified; M19.90 Unspecified osteoarthritis, unspecified site; Z87.820 Personal history of traumatic brain injury; Z87.891 Personal history of nicotine dependence
CPT/HCPCS: 36416; 76700; 78227; 80053; 80061; 80076; 82948; 83690; 85025; 96374; 96375; 99223; 99239; 99285; C9113; J2405; J2765; J7030

== ENCOUNTER 2017-11-26 10:33 | Day surgery (SDC) | payer BC ==
[~2017-11-26 10:33] MED LIST: ACETAMINOPHEN 1,000 MG/100 ML BTL IV ONE; FAMOTIDINE 20MG TABLET PO ONE; MECLIZINE 25 MG TABLET PO ONE; METOCLOPRAMIDE 10 MG TABLET PO ONE
[2017-11-26] MEDS ORDERED: PROPOFOL 10 MG/ML VIAL IV ONE (10:34)
[2017-11-26] MEDS ORDERED: FENTANYL PF 100MCG/2ML VIAL IV ONE (10:34)
[2017-11-26] MEDS ORDERED: METOCLOPRAMIDE HCL 10 MG/2 ML VIAL IVP ONE (10:34)
[2017-11-26] MEDS ORDERED: SUCCINYLCHOLINE 20 MG/ML 10ML IVP ONE (10:34)
[2017-11-26] MEDS ORDERED: DESFLURANE 240 ML BTL INH ONE (10:34)
[2017-11-26] MEDS ORDERED: NEOSTIGMINE 1 MG/1 ML,10ML VIAL IV ONE (10:34)
[2017-11-26] MEDS ORDERED: BUPIVACAINE 0.25% W/EPI MPF 30ML VIAL IVP ONE (10:34)
[2017-11-26] MEDS ORDERED: MORPHINE SULFATE 5 MG/ML PFS IVP ONE (10:34)
[2017-11-26] MEDS ORDERED: MIDAZOLAM HCL 2MG/2ML VIAL IV ONE (10:34)
[2017-11-26] MEDS ORDERED: LIDOCAINE 2% MDV (20MG/ML) 20ML VIAL IV ONE (10:34)
[2017-11-26] MEDS ORDERED: ROCURONIUM BROMIDE 50MG/5ML VIAL IV ONE (10:34)
[2017-11-26] MEDS ORDERED: GLYCOPYRROLATE 0.2 MG/ML ML IV ONE (10:34)
[2017-11-26] MEDS ORDERED: ONDANSETRON HCL IV 4 MG/2 ML VIAL IVP ONE (10:34)
--- NOTE | 2017-11-27 10:10 | Operative Note ---
DATE OF SURGERY: 11/26/2017 Surgeon: Norris Wallis DO PREOPERATIVE DIAGNOSIS: Chronic cholecystitis. POSTOPERATIVE DIAGNOSIS: Chronic cholecystitis. OPERATION: Laparoscopic cholecystectomy. Indication: The patient is a 42-year-old female who was admitted last week to the hospital. It appears that she had some issues with chronic right upper quadrant pain and gallstone pancreatitis. We did discuss cholecystectomy versus medical management. She desired surgical intervention. Risks include but are not limited to bleeding, infection, acute or chronic pain, bile duct injury, bile leak. She understood this fully. Thereafter, consent was signed and questions answered. PROCEDURE: She was taken to the operating room and placed in a supine position. General anesthesia was administered per the department of anesthesia. The patient's abdomen was prepped and draped in the usual sterile fashion. Due to her morbid obesity, I did select a supraumbilical site for the Alex port. Therefore, this area was anesthetized with a total of 5 mL of 0.25% Sensorcaine with epinephrine. A 2 cm supraumbilical incision was made. This was carried down to the anterior rectus fascia. This was incised. John Paul clamps were placed on the fascial edges and brought up into the wound. Stay sutures of 0 Vicryl were placed. Posterior rectus sheath was identified and incised. The peritoneal cavity was entered bluntly. At this time, a 10 mm blunt Alex port was placed. Adequate pneumoperitoneum was established. Under direct visualization, additional 5 mm epigastric and two 5 mm right subcostal ports were placed. The patient was rotated into steep reverse Trendelenburg, rotation to left. The gallbladder was encased in omentum and fat. This had to be swept inferiorly as the top of the gallbladder was seen. This was lifted anteriorly as the rest of the fat and omentum was swept inferiorly. Due to the weight of the liver, the gallbladder did tear, spilling non-purulent bile. This was then suctioned free. Further cephalad and lateral retraction was applied. Blunt dissection was used to take down the omentum further. The hepatocystic triangle was thoroughly dissected out. There was no aberrant anatomy, no posterior ductal structures. The distal half of the gallbladder was released from the cystic plate. These were doubly clipped and cut in a standard fashion. The gallbladder essentially peeled off the liver bed due to the weight. This was then placed in an EndoCatch bag and brought out infraumbilically. Right upper quadrant was then irrigated with approximately 2 liters of normal saline. There was no bleeding, no bile leak, and no bowel injury noted. The patient was leveled out. The pneumoperitoneum was released. All ports were removed. The fascia was closed with 0 Vicryl in a [id number] fashion. The skin at all ports was closed with 4-0 Vicryl. The patient was taken to the recovery room in satisfactory condition. FINDINGS AT THE TIME OF SURGERY: Acute on chronic cholecystitis. CC: Betsy IYER
== END 2017-11-26 14:30 | disposition home or self-care (01) ==
LOC: SUR 10:33
PROVIDERS: ATTEND Surgery
DX: K81.9 Cholecystitis, unspecified (principal); E78.00 Pure hypercholesterolemia, unspecified; E11.9 Type 2 diabetes mellitus without complications; I10 Essential (primary) hypertension; M19.90 Unspecified osteoarthritis, unspecified site
CPT/HCPCS: 47562; 00790; 36416; 82948; J2405; J3010; J2270; J0330; J2710; J2765

== ENCOUNTER 2017-12-18 21:57 | Emergency (ER) | payer BC ==
[2017-12-18] MEDS ORDERED: ONDANSETRON HCL IV 4 MG/2 ML VIAL IVP ONE (22:30)
[2017-12-18] MEDS ORDERED: 0.9 % SODIUM CHLORIDE 1000ML 1,000 ML IV SCH (22:30)
[2017-12-18] MEDS ORDERED: KETOROLAC 30 MG/ML VIAL IVP ONE (22:30)
[2017-12-18 22:34] LABS: BASO % 0.5 % (0-6); EOS % 5.2 % (0-6); HEMATOCRIT 40.4 % (35.0-47.0); HEMOGLOBIN 13.8 gm/dl (11.6-16.0); LYMPH % 33.8 % (16-45); MEAN CELL VOLUME 87.3 fl (81-97); MEAN CORPUSCULAR HEMOGLOBIN 29.8 pg (27-33); MEAN CORPUSCULAR HGB CONC 34.2 g/dl (32-36); MEAN PLATELET VOLUME 10.5 fl (7.4-10.4); MONO % 7.5 % (0-9); PLATELET COUNT 325 K/uL (130-400); RED BLOOD COUNT 4.63 M/uL (3.80-5.40); RED CELL DISTRIBUTION WIDTH 12.8 % (11.5-14.5); WHITE BLOOD COUNT W/O DIFF 8.1 K/uL (4.2-12.2)
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
[2017-12-18 22:46] LABS: BILIRUBIN,TOTAL 0.3 mg/dL (0.2-1.0); CREATININE 1.1 mg/dL (0.5-0.9)
[2017-12-18 22:47] LABS: TOTAL PROTEIN 7.3 g/dL (6.6-8.7)
[2017-12-18 22:52] LABS: ALB/GLOB RATIO 1.7 (1.1-1.8); ALBUMIN 4.6 g/dL (4.0-5.0)
[2017-12-18 23:01] LABS: URINE APPEARANCE CLEAR; URINE BILIRUBIN NEGATIVE (NEGATIVE); URINE BLOOD NEGATIVE (NEGATIVE); URINE COLOR YELLOW; URINE GLUCOSE (UA) NEGATIVE (NEGATIVE); URINE KETONE NEGATIVE (NEGATIVE); URINE LEUKOCYTE ESTERASE NEGATIVE (NEGATIVE); URINE NITRITE NEGATIVE (NEGATIVE); URINE PROTEIN NEGATIVE (NEGATIVE); URINE UROBILINOGEN 0.2 E.U./dL (0.20 - 1.00)
--- NOTE | 2017-12-21 10:11 | CT SCAN REPORT ---
EXAM: EMERGENCY CT OF THE ABDOMEN AND PELVIS WITH CONTRAST HISTORY: HAD CHOLECYSTECTOMY A MONTH AGO. PRIOR HYSTERECTOMY. NOW HAS LEFT SIDED ABDOMINAL PAIN FOR TWO WEEKS. TECHNIQUE: Axial CT scan of the abdomen and pelvis was performed following the intravenous administration of 100 ml of Omnipaque 300 as the IV contrast. No oral contrast was utilized at the referring physician's request. A preliminary report was provided by [facility]. Comparison: CT of the abdomen and pelvis 11/18/17. FINDINGS: The gallbladder is now surgically absent, new since the prior study. There is some diffuse fatty infiltration of the liver. No focal hepatic mass evident. No definite splenic, adrenal, or pancreatic mass identified. There are a few scattered tiny low attenuation foci in the right kidney and one in the upper pole of the left kidney. The largest of these is in the upper pole left kidney measuring only about 9 mm in size, having a CT density of 38 although because of the small size, this may be inaccurate with partial volume averaging of the adjacent enhanced renal parenchyma. The two largest on the right measure about 7 mm and 8 mm in size with CT densities of 10 and 35, again with the relatively high density of 35 possibly artifactual related to partial volume averaging. If clinically warranted, these could be further assessed with MRI of the kidneys. Tiny nonobstructing calculus lower pole right kidney again seen appearing essentially unchanged from before. The uterus is not identified consistent with the surgical history. There does appear to be an approximately 2 cm left ovarian cyst not identified as such on the prior exam and may be a dominant follicle. No appendicitis identified. No free intraperitoneal air or free intraperitoneal fluid identified. There is slight hazy density in the subcutaneous tissues around the umbilicus which may re related to the history of cholecystectomy a month ago. Linear density extending through the subcutaneous tissues of the right upper quadrant anterior abdominal wall is also new from the prior study and may be postoperative. Degenerative change in the facets of the lower lumbar spine. The lumbar curve convexed to the left. IMPRESSION: 1. POSTOP HYSTERECTOMY BEFORE. 2. POSTOP CHOLECYSTECTOMY, NEW SINCE 11/18/17. 3. SOME MILD HAZY DENSITY IN THE SUBCUTANEOUS TISSUES IN THE PERIUMBILICAL REGION NEW SINCE THE PRIOR STUDY AND MAY BE POSTOPERATIVE IN NATURE. THERE IS ALSO A LINEAR AREA OF INCREASED DENSITY EXTENDING THROUGH THE SUBCUTANEOUS TISSUES IN THE RIGHT UPPER QUADRANT, ALSO NEW FROM THE PRIOR STUDY AND MAY ALSO BE POSTOPERATIVE IN NATURE. 4. APPROXIMATELY 2 CM LEFT OVARIAN CYST, NONSPECIFIC ALTHOUGH MAY JUST BE A DOMINANT FOLLICLE. 5. SMALL LOW ATTENUATION FOCI IN BOTH KIDNEYS ALL LESS THAN 1 CM IN SIZE AND BECAUSE OF THIS IT IS SOMEWHAT INDETERMINATE. THESE MAY WELL ALL REPRESENT SMALL CYSTS, BUT IF CLINICALLY WARRANTED, IT COULD BE FURTHER EVALUATED WITH MRI. 6. SMALL NONOBSTRUCTING CALCULUS LOWER POLE RIGHT KIDNEY BEFORE. 7. DIFFUSE FATTY INFILTRATION OF THE LIVER. JOB NUMBER: [id number] MTDD
== END 2017-12-19 00:27 | disposition home or self-care (01) ==
LOC: ER 21:57
DX: N83.202 Unspecified ovarian cyst, left side (principal); N20.0 Calculus of kidney; J44.9 Chronic obstructive pulmonary disease, unspecified; E11.9 Type 2 diabetes mellitus without complications; I10 Essential (primary) hypertension; Z87.891 Personal history of nicotine dependence; Z90.49 Acquired absence of other specified parts of digestive tract
CPT/HCPCS: 99284 ×2; 96374; 96375; 96361; 83690; 85025; 80053; 81003; 74177; Q9967; J1885; J2405; J7030

== ENCOUNTER 2018-02-05 18:41 | Emergency (ER) | payer BC, OTHER ==
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
--- NOTE | 2018-02-06 14:24 | RADIOLOGY REPORT ---
EXAM: LEFT HAND HISTORY: BIT BY A DOG. PATIENT HAD PREVIOUS CARE, HOWEVER, PRESENTS FOR RECHECK OF THE WOUND. TECHNIQUE: Three views of the left hand were obtained. Comparison: None. Encounter: Subsequent. FINDINGS: The distal radius and distal ulnar appear intact. The carpal bones appear intact. There is no evidence of metacarpal fracture. The phalanges appear intact. No bony destructive process or periosteal reactions. IMPRESSION: NEGATIVE LEFT HAND SERIES. IF THERE IS STRONG CLINICAL CONCERN FOR OSTEOMYELITIS, BONE SCAN OR MRI WOULD BE MORE SENSITIVE. JOB NUMBER: [id number] [facility]
== END 2018-02-05 19:38 | disposition home or self-care (01) ==
LOC: ER 18:41
DX: S60.222A Contusion of left hand, initial encounter (principal); M79.645 Pain in left finger(s); W54.0XXA Bitten by dog, initial encounter; I10 Essential (primary) hypertension; Z87.891 Personal history of nicotine dependence
CPT/HCPCS: 99283

== ENCOUNTER 2018-06-08 14:59 | Emergency (ER) | payer BC ==
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
[2018-06-08] MEDS: 0.9 % SODIUM CHLORIDE 1,000 ML BAG IV ONE (15:49)
[2018-06-08 15:53] LABS: BASO % 0.2 % (0-6); EOS % 0.2 % (0-6); HEMATOCRIT 41.1 % (35.0-47.0); HEMOGLOBIN 14.1 gm/dl (11.6-16.0); MEAN CELL VOLUME 85.1 fl (81-97); MEAN CORPUSCULAR HEMOGLOBIN 29.2 pg (27-33); MEAN CORPUSCULAR HGB CONC 34.3 g/dl (32-36); MEAN PLATELET VOLUME 10.3 fl (7.4-10.4); MONO % 1.3 % (0-9); PLATELET COUNT 354 K/uL (130-400); RED BLOOD COUNT 4.83 M/uL (3.80-5.40); RED CELL DISTRIBUTION WIDTH 13.3 % (11.5-14.5)
[2018-06-08 16:05] LABS: BLOOD UREA NITROGEN 15 mg/dL (6-20); CREATININE 0.8 mg/dL (0.5-0.9); EST GLOMERULAR FILTRATION RATE > 60 mL/min
[2018-06-08 16:08] LABS: GLUCOSE,RANDOM 281 mg/dL (74-109)
[2018-06-08] MEDS: ASPIRIN 325 MG TABLET PO ONE (17:31)
--- NOTE | 2018-06-10 09:17 | RADIOLOGY REPORT ---
EXAM: CHEST, TWO VIEWS HISTORY: COUGH AND CONGESTION. TECHNIQUE: PA and lateral views of the chest were obtained. Comparison: None. FINDINGS: The heart size is normal. No definite acute infiltrate seen. No pleural effusion or pneumothorax evident. Minor spurring in the spine. IMPRESSION: MINOR SPURRING IN THE SPINE. NO DEFINITE ACUTE INFILTRATE SEEN. JOB NUMBER: [id number] [facility]
== END 2018-06-08 17:34 | disposition home or self-care (01) ==
LOC: ER 14:59
DX: J45.21 Mild intermittent asthma with (acute) exacerbation (principal); J44.9 Chronic obstructive pulmonary disease, unspecified; I10 Essential (primary) hypertension; Z87.891 Personal history of nicotine dependence
CPT/HCPCS: 71046; 80048; 84484; 85027; 85379; 93005; 93010; 99284; J7030

== ENCOUNTER 2018-09-14 13:16 | Emergency (ER) | payer BC ==
[2018-09-14] MEDS ORDERED: ONDANSETRON HCL IV 4 MG/2 ML VIAL IVP ONE (13:31)
[2018-09-14] MEDS ORDERED: 0.9 % SODIUM CHLORIDE 1,000 ML BAG IV ONE (13:31)
[2018-09-14] MEDS ORDERED: KETOROLAC 30 MG/ML VIAL IVP ONE (13:36)
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
[2018-09-14 13:56] LABS: BASO % 0.9 % (0-6); EOS % 4.8 % (0-6); GRAN % 56.5 % (47-80); HEMATOCRIT 43.2 % (35.0-47.0); HEMOGLOBIN 14.6 gm/dl (11.6-16.0); LYMPH % 30.2 % (16-45); MEAN CELL VOLUME 89.3 fl (81-97); MEAN CORPUSCULAR HEMOGLOBIN 30.2 pg (27-33); MEAN CORPUSCULAR HGB CONC 33.8 g/dl (32-36); MEAN PLATELET VOLUME 10.2 fl (7.4-10.4); MONO % 7.6 % (0-9); PLATELET COUNT 381 K/uL (130-400); RED BLOOD COUNT 4.84 M/uL (3.80-5.40); RED CELL DISTRIBUTION WIDTH 13.2 % (11.5-14.5); WHITE BLOOD COUNT W/O DIFF 7.5 K/uL (4.2-12.2)
[2018-09-14 13:59] LABS: URINE APPEARANCE CLEAR; URINE BILIRUBIN NEGATIVE (NEGATIVE); URINE BLOOD NEGATIVE (NEGATIVE); URINE COLOR YELLOW; URINE GLUCOSE (UA) NEGATIVE (NEGATIVE); URINE KETONE NEGATIVE (NEGATIVE); URINE LEUKOCYTE ESTERASE NEGATIVE (NEGATIVE); URINE NITRITE NEGATIVE (NEGATIVE); URINE PROTEIN NEGATIVE (NEGATIVE); URINE UROBILINOGEN 0.2 E.U./dL (0.20 - 1.00)
[2018-09-14 14:08] LABS: BLOOD UREA NITROGEN 12 mg/dL (6-20); CREATININE 0.9 mg/dL (0.5-0.9); EST GLOMERULAR FILTRATION RATE > 60 mL/min
[2018-09-14 14:09] LABS: LIPASE 54 U/L (13-60); TOTAL PROTEIN 7.8 g/dL (6.6-8.7)
[2018-09-14 14:11] LABS: GLUCOSE,RANDOM 127 mg/dL (74-109)
[2018-09-14 14:13] LABS: ALT/SGPT 27 U/L (<33)
[2018-09-14 14:14] LABS: ALB/GLOB RATIO 1.5 (1.1-1.8); ALBUMIN 4.7 g/dL (4.0-5.0); ALKALINE PHOSPHATASE 49 U/L (45-87); AST/SGOT 27 U/L (10.0-35.0)
[2018-09-14] MEDS ORDERED: MORPHINE SULFATE 10 MG/ML VIAL IVP ONE (15:50)
--- NOTE | 2018-09-16 10:10 | CT SCAN REPORT ---
EXAM: POST CONTRAST CT OF THE ABDOMEN AND PELVIS HISTORY: RIGHT SIDED ABDOMINAL PAIN FOR THREE DAYS. TECHNIQUE: CT of the abdomen and pelvis was obtained utilizing 100 ml Omnipaque 300 intravenous contrast as well as oral contrast. Comparison: Abdomen radiograph 09/13/18, abdominal ultrasound 06/26/18, and CT abdomen and pelvis 12/18/17. FINDINGS: The lung bases are clear. Tiny low attenuation right hepatic lobe lesion. The liver is otherwise unremarkable. The gallbladder is not seen. Unremarkable appearance of the spleen, adrenal glands, and pancreas. Symmetric renal perfusion. No hydronephrosis. Bilateral 2 mm intrarenal calculi. Small bilateral low density renal cortical lesions, likely representing cysts. No focal colonic thickening or inflammatory change. No free air. No free fluid. The uterus is absent. Unremarkable appearance of the urinary bladder. Small right adnexal 1.5 cm cystic structure. Normal appearing appendix. No suspicious adenopathy. Aortoiliac arterial access is calcified without evidence of aneurysm or dissection. No acute osseous findings. IMPRESSION: 1. NO DEFINITE ACUTE ABDOMINAL OR PELVIC FINDINGS. 2. BILATERAL NONOBSTRUCTING INTRARENAL CALCULI LIKELY. LIKELY SMALL BILATERAL RENAL CORTICAL CYSTS. 3. SMALL CYSTIC STRUCTURES WITHIN THE RIGHT ADNEXA, MEASURING UP TO 1.5 CM; MOST LIKELY REPRESENTING FOLLICLES. 4. TINY LOW ATTENUATION RIGHT HEPATIC LOBE LESION, MOST LIKELY A SMALL CYST. JOB [facility]BER: [id number] [facility]
== END 2018-09-14 17:09 | disposition home or self-care (01) ==
LOC: ER 13:16
DX: K59.00 Constipation, unspecified (principal); R10.31 Right lower quadrant pain; R11.0 Nausea; J44.9 Chronic obstructive pulmonary disease, unspecified; I10 Essential (primary) hypertension; Z87.891 Personal history of nicotine dependence
CPT/HCPCS: 99284 ×2; 96374; 96375; 83690; 85025; 80053; 81003; 74177; Q9967; J1885; J2405; J2270; J7030

== ENCOUNTER 2018-09-17 19:10 | Emergency (ER) | payer BC ==
[2018-09-17] MEDS ORDERED: HYOSCYAMINE SULFATE ODT 0.125 MG TAB.SUBL SL ONE (19:21)
[2018-09-17] MEDS ORDERED: ONDANSETRON HCL IV 4 MG/2 ML VIAL IVP ONE (19:21)
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
[2018-09-17 19:33] LABS: EOS % 4.5 % (0-6); GRAN % 53.2 % (47-80); HEMATOCRIT 41.4 % (35.0-47.0); HEMOGLOBIN 13.8 gm/dl (11.6-16.0); LYMPH % 33.2 % (16-45); MEAN CELL VOLUME 90.2 fl (81-97); MEAN CORPUSCULAR HEMOGLOBIN 30.1 pg (27-33); MEAN CORPUSCULAR HGB CONC 33.3 g/dl (32-36); MEAN PLATELET VOLUME 10.2 fl (7.4-10.4); MONO % 8.1 % (0-9); PLATELET COUNT 365 K/uL (130-400); RED BLOOD COUNT 4.59 M/uL (3.80-5.40); WHITE BLOOD COUNT W/O DIFF 7.3 K/uL (4.2-12.2)
[2018-09-17 19:45] LABS: BLOOD UREA NITROGEN 12 mg/dL (6-20); EST GLOMERULAR FILTRATION RATE > 60 mL/min
[2018-09-17 19:46] LABS: LIPASE 57 U/L (13-60); TOTAL PROTEIN 7.2 g/dL (6.6-8.7)
[2018-09-17 19:48] LABS: URINE APPEARANCE CLEAR; URINE BILIRUBIN NEGATIVE (NEGATIVE); URINE BLOOD NEGATIVE (NEGATIVE); URINE COLOR YELLOW; URINE GLUCOSE (UA) NEGATIVE (NEGATIVE); URINE KETONE NEGATIVE (NEGATIVE); URINE LEUKOCYTE ESTERASE NEGATIVE (NEGATIVE); URINE NITRITE NEGATIVE (NEGATIVE); URINE PROTEIN NEGATIVE (NEGATIVE); URINE UROBILINOGEN 0.2 E.U./dL (0.20 - 1.00)
[2018-09-17 19:48] LABS: GLUCOSE,RANDOM 209 mg/dL (74-109)
[2018-09-17 19:50] LABS: ALB/GLOB RATIO 1.8 (1.1-1.8); ALBUMIN 4.6 g/dL (4.0-5.0); ALT/SGPT 24 U/L (<33); AST/SGOT 22 U/L (10.0-35.0)
[2018-09-17 19:51] LABS: ALKALINE PHOSPHATASE 52 U/L (45-87)
[2018-09-17] MEDS ORDERED: KETOROLAC 30 MG/ML VIAL IVP ONE (20:10)
== END 2018-09-17 21:04 | disposition home or self-care (01) ==
LOC: ER 19:10
DX: R10.11 Right upper quadrant pain (principal); R19.7 Diarrhea, unspecified; I10 Essential (primary) hypertension; E11.9 Type 2 diabetes mellitus without complications; Z87.891 Personal history of nicotine dependence
CPT/HCPCS: 99284 ×2; 96374; 96375; 83690; 85025; 80053; 81003; J1980; J1885; J2405

== ENCOUNTER 2018-11-11 11:53 | Day surgery (SDC) | payer BC ==
[2018-11-11] MEDS ORDERED: LIDOCAINE 2% MDV (20MG/ML) 20ML VIAL IV ONE (11:54)
[2018-11-11] MEDS ORDERED: PROPOFOL 10 MG/ML VIAL IV ONE (11:54)
--- NOTE | 2018-11-11 15:20 | Operative Note ---
DATE OF SURGERY: 11/11/2018 OPERATION: COLONOSCOPY to the cecum and terminal ileum with multiple biopsies. INDICATION: A 3-month history of diarrhea, claiming to have 3-4 stools a day generally occurring after eating. She also has some right-sided periumbilical pain. Workup to date has been unremarkable. Colonoscopy is performed at this time for further evaluation. ANESTHESIA: Intravenous sedation was administered by the department of anesthesiology and included Diprivan titrated to effect. PROCEDURE: Following informed consent from this alert individual including a discussion of the risks and benefits of the procedure and an opportunity for the patient to ask questions, the patient was in the left lateral decubitus position. A digital rectal examination was performed. No abnormalities were noted. Following this, the Olympus [id number] video colonoscope was inserted into the rectum without resistance. The rectal mucosa had a normal appearance with normal folds and distensibility. The colonoscope was advanced up through the colon to the level of the cecum without much difficulty. Throughout the bowel the mucosa appeared normal, the folds were normal, and the bowel was fairly well distensible. The cecum was defined by noting the appendiceal orifice and ileocecal valve. The terminal ileum was then cannulated for approximately 10-15 cm and found to be normal. From this point, the colonoscope was then slowly withdrawn. Random biopsies were taken from throughout the colon to evaluate for some microscopic colitis. However, the mucosa appeared to be completely normal endoscopically. There was a 5 mm polyp noted in the sigmoid colon which was removed with cold snare polypectomy. Retroflexion in the rectum was endoscopically normal. The endoscope was straightened and removed. The patient tolerated the procedure well and was returned to the recovery area in stable condition. IMPRESSION: 1. A 5 mm sigmoid polyp removed with cold snare polypectomy. 2. Otherwise normal terminal ileum and colon as visualized. Random biopsies taken from the bowel to rule out microscopic changes. RECOMMENDATIONS: The patient can utilize Imodium on an as-needed basis if her diarrhea becomes severe. Further recommendations may be forthcoming pending results of pathology obtained today. She will be following up with Dr. Yousif as well. As always, thank you for allowing me to participate in the care of your patient. CC: MD SHIREEN Brooke
== END 2018-11-11 14:10 | disposition home or self-care (01) ==
LOC: HOP 11:53
PROVIDERS: ATTEND Internal Medicine Gastroenterology
DX: R19.7 Diarrhea, unspecified (principal); R10.33 Periumbilical pain; D12.5 Benign neoplasm of sigmoid colon; I10 Essential (primary) hypertension; E11.9 Type 2 diabetes mellitus without complications; E78.00 Pure hypercholesterolemia, unspecified; J45.909 Unspecified asthma, uncomplicated; E03.9 Hypothyroidism, unspecified; M19.90 Unspecified osteoarthritis, unspecified site; G62.9 Polyneuropathy, unspecified

== ENCOUNTER 2018-11-13 11:56 | Emergency (ER) | payer BC ==
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
[2018-11-13 13:56] LABS: BLOOD UREA NITROGEN 8 mg/dL (6-20); CREATININE 0.6 mg/dL (0.5-0.9); EST GLOMERULAR FILTRATION RATE > 60 mL/min
[2018-11-13 13:57] LABS: LIPASE 46 U/L (13-60); TOTAL PROTEIN 6.7 g/dL (6.6-8.7)
[2018-11-13 13:58] LABS: BASO % 0.6 % (0-6); EOS % 6.9 % (0-6); GRAN % 63.1 % (47-80); HEMATOCRIT 43.1 % (35.0-47.0); HEMOGLOBIN 14.4 gm/dl (11.6-16.0); LYMPH % 22.3 % (16-45); MEAN CELL VOLUME 89.8 fl (81-97); MEAN CORPUSCULAR HGB CONC 33.4 g/dl (32-36); MEAN PLATELET VOLUME 10.5 fl (7.4-10.4); MONO % 7.1 % (0-9); PLATELET COUNT 315 K/uL (130-400); RED CELL DISTRIBUTION WIDTH 13.1 % (11.5-14.5); WHITE BLOOD COUNT W/O DIFF 9.7 K/uL (4.2-12.2)
[2018-11-13 13:59] LABS: GLUCOSE,RANDOM 109 mg/dL (74-109)
[2018-11-13 14:01] LABS: ALBUMIN 4.2 g/dL (4.0-5.0); ALT/SGPT 26 U/L (<33); AST/SGOT 27 U/L (10.0-35.0)
[2018-11-13 14:02] LABS: ALKALINE PHOSPHATASE 42 U/L (35-104)
[2018-11-13 14:04] LABS: BILIRUBIN,DIRECT < 0.2 mg/dL (0-0.3)
[2018-11-13] MEDS ORDERED: ONDANSETRON HCL IV 4 MG/2 ML VIAL IVP ONE (15:14)
[2018-11-13] MEDS ORDERED: MORPHINE SULFATE 10 MG/ML VIAL IVP ONE (15:14)
--- NOTE | 2018-11-15 23:14 | CT SCAN REPORT ---
EXAM: CT SCAN ABDOMEN/PELVIS W CONTRAST HISTORY: RIGHT UPPER ABDOMINAL PAIN 24 HOURS POST COLONOSCOPY. MULTIPLE BIOPSIES. TECHNIQUE: Following oral and intravenous contrast administration, helical CT examination of the abdomen and pelvis is performed including delayed images through the kidneys with 100 mL of Omnipaque-300 utilized. COMPARISON: CT abdomen and pelvis with contrast dated 09/14/2018. FINDINGS: The lung bases are clear. No pleural or pericardial effusion. The heart is not enlarged. There is re-demonstration of a too small to characterize hypodense lesion within the high posterior segment of the right liver lobe measuring 5 mm. This is unchanged. In the absence of known malignant primary tumor and absence of known liver disease, this is likely a cyst or hemangioma. The liver is otherwise normal in appearance. The spleen, pancreas, and adrenal glands remain normal in appearance. There is a 2-3 mm nonobstructing calculus in the upper pole of the left kidney. This is stable. Three or four tiny nonobstructing calculi are present in the right kidney, also unchanged. A couple too small to characterize hypodense lesions are again noted in the upper pole of the right kidney and one in the lower pole. These are stable with the largest in the lower pole measuring 8.5 mm. A similar too small to characterize hypodense lesion is noted in the medial upper pole of the left kidney measuring 8 mm. These are nonspecific but likely cysts. No new renal lesion. No obstructive uropathy. No ureteral calculus. The gallbladder is surgically absent. No biliary ductal dilatation. The portal vein and splenic vein are patent. The central mesenteric vasculature appears patent. Mild diffuse atherosclerosis without aneurysmal dilatation of the abdominal aorta nor iliac arteries. There are a couple of dominant follicles within the right ovary measuring 1.8 cm and 2.0 cm in diameter, respectively. No suspicious pelvic mass nor adenopathy. No free pelvic fluid. The uterus is surgically absent. No intrinsic urinary bladder abnormality. No gross bowel dilatation nor bowel wall thickening though evaluation of the colon is somewhat limited by lack of distention. No extraluminal air. The appendix is visualized and normal in appearance. No lytic or blastic lesion. IMPRESSION: 1. STATUS POST CHOLECYSTECTOMY AND HYSTERECTOMY. 2. NO CONVINCING CT EVIDENCE OF AN ACUTE INTRAABDOMINAL NOR INTRAPELVIC PROCESS. 3. TOO SMALL TO CHARACTERIZE HYPODENSE LESION RE-DEMONSTRATED IN THE HIGH RIGHT LIVER LOBE CONSISTENT WITH CYST OR HEMANGIOMA. 4. TOO SMALL TO CHARACTERIZE HYPODENSE RENAL LESIONS RE-DEMONSTRATED, LIKELY CYSTS. BILATERAL NEPHROLITHIASIS. 5. THERE ARE A COUPLE OF DOMINANT FOLLICLES WITHIN THE RIGHT OVARY. JOB NUMBER: [id number] [facility]
== END 2018-11-13 15:50 | disposition home or self-care (01) ==
LOC: ER 11:56
DX: R10.11 Right upper quadrant pain (principal); R11.2 Nausea with vomiting, unspecified; I10 Essential (primary) hypertension; Z87.891 Personal history of nicotine dependence; Z98.890 Other specified postprocedural states
CPT/HCPCS: 99284 ×2; 96374; 96375; 83690; 85025; 80076; 80048; 74177; Q9967; J2405; J2270

== ENCOUNTER 2019-02-20 03:35 | Emergency (ER) | payer BC ==
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
[2019-02-20] MEDS ORDERED: KETOROLAC 30 MG/ML VIAL IVP ONE (03:53)
[2019-02-20] MEDS ORDERED: ONDANSETRON HCL IV 4 MG/2 ML VIAL IV ONE (03:53)
[2019-02-20] MEDS ORDERED: 0.9 % SODIUM CHLORIDE 1,000 ML BAG IV ONE (03:53)
[2019-02-20 04:14] LABS: ABSOLUTE NEUTROPHIL COUNT 5.93; BASO % 0.7 % (0-6); EOS % 3.2 % (0-6); GRAN % 64.4 % (47-80); HEMATOCRIT 43.9 % (35.0-47.0); HEMOGLOBIN 14.6 gm/dl (11.6-16.0); LYMPH % 21.8 % (16-45); MEAN CELL VOLUME 85.7 fl (81-97); MEAN CORPUSCULAR HEMOGLOBIN 28.5 pg (27-33); MEAN CORPUSCULAR HGB CONC 33.3 g/dl (32-36); MONO % 9.9 % (0-9); PLATELET COUNT 387 K/uL (130-400); RED BLOOD COUNT 5.12 M/uL (3.80-5.40); RED CELL DISTRIBUTION WIDTH 12.8 % (11.5-14.5); WHITE BLOOD COUNT W/O DIFF 9.2 K/uL (4.2-12.2)
[2019-02-20 04:19] LABS: URINE APPEARANCE CLEAR; URINE BILIRUBIN NEGATIVE (NEGATIVE); URINE BLOOD SMALL (NEGATIVE); URINE COLOR YELLOW; URINE GLUCOSE (UA) NEGATIVE (NEGATIVE); URINE KETONE NEGATIVE (NEGATIVE); URINE LEUKOCYTE ESTERASE TRACE (NEGATIVE); URINE NITRITE NEGATIVE (NEGATIVE); URINE PROTEIN NEGATIVE (NEGATIVE); URINE UROBILINOGEN 0.2 E.U./dL (0.20 - 1.00)
[2019-02-20 04:31] LABS: URINE BACTERIA FEW
[2019-02-20 04:33] LABS: BLOOD UREA NITROGEN 16 mg/dL (6-20); CREATININE 0.9 mg/dL (0.5-0.9); EST GLOMERULAR FILTRATION RATE > 60 mL/min; LIPASE 55 U/L (13-60); TOTAL PROTEIN 7.6 g/dL (6.6-8.7)
[2019-02-20 04:35] LABS: GLUCOSE,RANDOM 192 mg/dL (74-109)
[2019-02-20 04:38] LABS: ALB/GLOB RATIO 1.7 (1.1-1.8); ALBUMIN 4.8 g/dL (4.0-5.0); ALT/SGPT 25 U/L (<33); AST/SGOT 25 U/L (10.0-35.0)
[2019-02-20] MEDS ORDERED: HYDROMORPHONE HCL 2 MG/ML VIAL IVP ONE (05:01)
[2019-02-20 05:29] LABS: ALKALINE PHOSPHATASE 68 U/L (35-104)
[2019-02-20] MEDS ORDERED: CIPROFLOXACIN LACTATE/D5W 400 MG/200 ML BAG IVPB ONE (05:51)
--- NOTE | 2019-02-21 06:58 | CT SCAN REPORT ---
EXAM: CT SCAN ABDOMEN/PELVIS WO CONTRAST HISTORY: RIGHT MID TO LOWER ABDOMINAL PAIN WITH NAUSEA FOR ONE DAY. TECHNIQUE: Thin-collimation helical CT examination of the abdomen and pelvis is performed without oral or intravenous contrast administration. Lack of oral and IV contrast utilization limits evaluation of bowel and solid viscera respectively. COMPARISON: CT abdomen and pelvis with contrast dated 11/13/2018. FINDINGS: The lung bases remain clear. No pleural or pericardial effusion. The heart is not enlarged. There is a too small to characterize hypodense lesion redemonstrated within the high posterior segment of the right liver lobe measuring 4-5 mm. This is unchanged. It is nonspecific but likely a cyst or hemangioma. The liver is otherwise normal in appearance. The spleen, pancreas, and adrenal glands remain normal in appearance. The gallbladder is surgically absent and no biliary ductal dilatation is seen. The kidneys remain normal in size and smoothly marginated. There are a couple tiny nonobstructing calculi within the right kidney with the largest located in the lower pole measuring approximately 2.5 mm in maximum diameter. The previously demonstrated too small to characterize hypodense lesions within the right kidney are not visualized with confidence given lack of IV contrast utilization. The previously demonstrated 2.5 mm nonobstructing calculus in the upper pole of the left kidney is no longer identified in this position. There is now demonstrated a 3.4 mm calculus in the mid left ureter causing mild upstream collecting system dilatation and mild periureteral fat stranding. The previously demonstrated too small to characterize hypodense lesion in the medial upper pole of the left kidney is not visualized with confidence. The renal collecting systems are otherwise normal in appearance. No intra-abdominal nor retroperitoneal lymphadenopathy. Mild atherosclerosis without aneurysmal dilatation of the abdominal aorta. The uterus is surgically absent. No new pelvic mass, lymphadenopathy, or free pelvic fluid. The right ovary is visualized and measures 3.3 x 2.8 cm. The left ovary measures 2.5 x 1.6 cm. A tiny follicle is likely noted along the medial margin of the right ovary. The previously demonstrated dominant follicle in the right ovary measuring 1.8 cm is no longer visualized. No new pelvic mass, lymphadenopathy, or free pelvic fluid. No intrinsic urinary bladder abnormality though evaluation is limited by lack of distention. The appendix is visualized and unremarkable. There is minor fat stranding in the region of the high right paracolic gutter adjacent to the posterior/inferior margin of the right liver lobe. This is nonspecific. No new lytic or blastic bone lesion. There are mild degenerative changes of the lower lumbar spine. IMPRESSION: 1. A 4 MM OBSTRUCTING CALCULUS WITHIN THE MID LEFT URETER CAUSING MILD UPSTREAM COLLECTING SYSTEM DILATATION AND PERIURETERAL FAT STRANDING. THE PREVIOUSLY DEMONSTRATED 3 MM CALCULUS IN THE UPPER POLE OF THE LEFT KIDNEY IS NO LONGER PRESENT IN THIS LOCATION. 2. RIGHT NEPHROLITHIASIS. 3. MINOR NEW FAT STRANDING IN THE REGION OF THE HIGH RIGHT PARACOLIC GUTTER ADJACENT TO THE INFERIOR MARGIN OF THE LIVER. THIS IS NONSPECIFIC AND MAY BE INFLAMMATORY THOUGH NO DEFINITE ABNORMALITY OF BOWEL IN THIS VICINITY IS NOTED. 4. STATUS POST CHOLECYSTECTOMY AND HYSTERECTOMY. 5. TOO SMALL TO CHARACTERIZE HYPODENSE LESION REDEMONSTRATED WITHIN THE RIGHT LIVER LOBE. JOB NUMBER: [id number] [facility]
== END 2019-02-20 06:56 | disposition short-term general hospital (02) ==
LOC: ER 03:35
DX: N13.2 Hydronephrosis with renal and ureteral calculous obstruction (principal); N20.0 Calculus of kidney; E03.9 Hypothyroidism, unspecified; M32.14 Glomerular disease in systemic lupus erythematosus; N30.01 Acute cystitis with hematuria; E11.9 Type 2 diabetes mellitus without complications; I10 Essential (primary) hypertension
CPT/HCPCS: 99285 ×2; 96365; 96375; 83690; 85025; 80053; 81001; 74176; J0744; J1885; J2405; J1170; J7030

== ENCOUNTER 2019-09-19 13:22 | Emergency (ER) | payer BC ==
[2019-09-19] MEDS ORDERED: ASPIRIN 81 MG CHEWABLE TABLET PO ONE (13:59)
[2019-09-19] MEDS: NITROGLYCERIN 0.4MG SL TABLET #25 BTL SL PRN ×2 (14:07→14:13)
[2019-09-19 14:20] LABS: ABSOLUTE NEUTROPHIL COUNT 4.99; BASO % 0.9 % (0-6); EOS % 5.6 % (0-6); GRAN % 61.6 % (47-80); HEMATOCRIT 43.4 % (35.0-47.0); HEMOGLOBIN 13.9 gm/dl (11.6-16.0); LYMPH % 23.9 % (16-45); MEAN CELL VOLUME 87.9 fl (81-97); MEAN CORPUSCULAR HEMOGLOBIN 28.1 pg (27-33); MEAN PLATELET VOLUME 10.2 fl (7.4-10.4); PLATELET COUNT 366 K/uL (130-400); RED BLOOD COUNT 4.94 M/uL (3.80-5.40); RED CELL DISTRIBUTION WIDTH 13.5 % (11.5-14.5); URINE APPEARANCE CLEAR; URINE BILIRUBIN NEGATIVE (NEGATIVE); URINE BLOOD NEGATIVE (NEGATIVE); URINE COLOR YELLOW; URINE GLUCOSE (UA) NEGATIVE (NEGATIVE); URINE KETONE NEGATIVE (NEGATIVE); URINE LEUKOCYTE ESTERASE NEGATIVE (NEGATIVE); URINE NITRITE NEGATIVE (NEGATIVE); URINE PROTEIN NEGATIVE (NEGATIVE); URINE UROBILINOGEN 0.2 E.U./dL (0.20 - 1.00); WHITE BLOOD COUNT W/O DIFF 8.1 K/uL (4.2-12.2)
[2019-09-19 14:33] LABS: BILIRUBIN,TOTAL < 0.20 mg/dL (0.2-1.0); BLOOD UREA NITROGEN 12 mg/dL (6-20); EST GLOMERULAR FILTRATION RATE > 60 mL/min
[2019-09-19 14:34] LABS: TOTAL PROTEIN 7.3 g/dL (6.6-8.7)
[2019-09-19 14:36] LABS: GLUCOSE,RANDOM 157 mg/dL (74-109)
[2019-09-19 14:38] LABS: ALB/GLOB RATIO 1.7 (1.1-1.8); ALBUMIN 4.6 g/dL (4.0-5.0); ALKALINE PHOSPHATASE 60 U/L (35-104); ALT/SGPT 24 U/L (<33); AST/SGOT 24 U/L (10.0-35.0)
[2019-09-19 14:39] LABS: CREATINE PHOSPHOKINASE 210 U/L (26-192)
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
[2019-09-19 14:41] LABS: CKMB 2.1 ng/mL (<3.77)
[2019-09-19 14:49] LABS: THYROID STIMULATING HORMONE 2.51 uIU/mL (0.270-4.20)
--- NOTE | 2019-09-19 15:58 | CT ANGIOGRAM REPORT ---
EXAMINATION: CT Angiography of the Thorax EXAM DATE: 09/19/2019 3:23 PM TECHNIQUE: Standard protocol CT angiogram images were obtained through the chest following the admini stration of intravenous contrast. Coronal and sagittal MIP 3-D reformations were performed. IV Contrast: The amount and type of contrast are recorded in the medical record. INDICATION: cp. COMPARISON: None ENCOUNTER: Not applicable FINDINGS: Pulmonary Artery: No pulmonary embolism is present. Aorta: No thoracic aortic aneurysm or dissection is present. Motion artifact at the aortic root Right Heart Strain: None. Heart : There is no pericardial effusion. Denia and Mediastinum: No lymphadenopathy. Lung Parenchyma: Normal. Central Airways: Normal. Pleural Effusion: None. Upper Abdomen: Unremarkable. Musculoskeletal and Chest Wall: Unremarkable. IMPRESSION: No CT evidence for pulmonary embolus Clear lungs Additional findings as above Dictated by: Nils Benavides MD on 09/19/2019 3:28 PM. .
== END 2019-09-19 19:00 | disposition home or self-care (01) ==
LOC: ER 13:22
DX: R07.2 Precordial pain (principal); R06.02 Shortness of breath; R79.89 Other specified abnormal findings of blood chemistry; J44.9 Chronic obstructive pulmonary disease, unspecified; I10 Essential (primary) hypertension; E11.9 Type 2 diabetes mellitus without complications; Z87.891 Personal history of nicotine dependence
CPT/HCPCS: 71275; 80053; 81003; 82550; 82553; 83880; 84443; 84484; 85025; 85379; 93005; 93010; 99284